=== PATIENT | male | born 2000 | race Caucasian/White ===

== ENCOUNTER 2025-01-02 06:29 | Emergency (ER) | payer OTHER ==
[~2025-01-02] VITALS: Ht 167.6 cm; Wt 66.4 kg
[2025-01-02] MEDS: ONDANSETRON 4MG TAB PO ONE (08:21)
[2025-01-02] MEDS: ACETAMINOPHEN 500 MG TAB PO ONE (08:21)
[2025-01-02 10:19] VITALS: BP 113/68; TEMP 97.5; O2SAT 100
[2025-01-02] MEDS ORDERED: ONDA-282 PO (11:51)
== END 2025-01-02 12:15 | disposition home or self-care (01) ==
LOC: M ED 06:29
DX: J02.9 Acute pharyngitis, unspecified (principal); B34.1 Enterovirus infection, unspecified; F17.290 Nicotine dependence, other tobacco product, uncomplicated; Z79.899 Other long term (current) drug therapy